=== PATIENT | female | born 1990 | race Caucasian/White ===

== ENCOUNTER 2024-05-02 12:57 | Emergency (ER) | payer OTHER ==
[~2024-05-02] VITALS: Ht 177.8 cm; Wt 101.0 kg
[2024-05-02] MEDS ORDERED: BUSP15TA47 PO (13:23)
[2024-05-02] MEDS ORDERED: CLON0.5T17 PO (13:23)
[2024-05-02] MEDS ORDERED: SERT-141 PO (13:23)
[2024-05-02 14:58] LABS: BASO # 0.1 10^3/uL (0.0-0.2); BASO % 0.8 % (0.0-1.0); EOS # 0.3 10^3/uL (0.0-0.5); EOS % 4.3 % (0.0-3.0); HEMATOCRIT 39.6 % (36.0-47.0); HEMOGLOBIN 13.4 g/dl (12.0-15.5); LYMPH % 28.6 % (24.0-44.0); MEAN CORPUSCULAR HEMOGLOBIN 29.3 pg (27.0-33.0); MEAN CORPUSCULAR HGB CONC 33.8 g/dl (32.0-36.5); MEAN CORPUSCULAR VOLUME 86.7 fl (80.0-96.0); MONO # 0.5 10^3/uL (0.0-0.8); MONO % 6.7 % (2.0-8.0); NEUTROPHILS # 4.2 10^3/uL (1.5-8.5); NEUTROPHILS % 59.3 % (36.0-66.0); PLATELET COUNT, AUTOMATED 229 10^3/uL (150-450); RED BLOOD COUNT 4.57 10^6/uL (4.00-5.40); WHITE BLOOD COUNT 7.1 10^3/uL (4.0-10.0)
[2024-05-02 15:25] LABS: BLOOD UREA NITROGEN 12 MG/DL (9-23); CALCIUM LEVEL 8.9 MG/DL (8.5-10.1); CARBON DIOXIDE LEVEL 23 MMOL/L (20-31); CHLORIDE LEVEL 110 MMOL/L (98-107); CK-MB VALUE MASS < 1.0 NG/ML (<3.6); CREATININE FOR GFR 0.69 MG/DL (0.55-1.30); GLOMERULAR FILTRATION RATE > 60.0 (>60); GLUCOSE, FASTING 88 MG/DL (60-100); SODIUM LEVEL 138 MMOL/L (136-145)
[2024-05-02 15:27] LABS: THYROID STIMULATING HORMONE 4.614 uIU/ML (0.55-4.78)
[2024-05-02 15:28] LABS: FREE T4 1.21 NG/DL (0.89-1.76)
[2024-05-02 15:30] LABS: CPK CREATINE PHOSPHOKINASE 50 U/L (34-145)
[2024-05-02 15:44] LABS: HCG, SERUM QUALITATIVE NEGATIVE (NEGATIVE)
[2024-05-02 17:22] VITALS: BP 113/56; TEMP 98.5; O2SAT 99
== END 2024-05-02 17:26 | disposition home or self-care (01) ==
LOC: M ED 12:57
DX: R00.2 Palpitations (principal); J45.909 Unspecified asthma, uncomplicated; E03.9 Hypothyroidism, unspecified; F41.9 Anxiety disorder, unspecified; F31.9 Bipolar disorder, unspecified; F32.A Depression, unspecified; F43.10 Post-traumatic stress disorder, unspecified; F12.10 Cannabis abuse, uncomplicated; Z88.8 Allergy status to other drugs, medicaments and biological substances; Z91.09 Other allergy status, other than to drugs and biological substances; Z79.899 Other long term (current) drug therapy

== ENCOUNTER 2025-05-07 14:25 | Emergency (ER) | payer OTHER, SELFPAY ==
[~2025-05-07] VITALS: Ht 177.8 cm; Wt 104.1 kg
[~2025-05-07 14:25] MED LIST: BUSP15TA47 PO; CLON0.5T17 PO; SERT-141 PO
[2025-05-07 14:29] VITALS: BP 131/80; TEMP 97.3; O2SAT 98
== END 2025-05-07 17:00 | disposition left against medical advice (07) ==
LOC: M ED 14:25
DX: Z53.21 Procedure and treatment not carried out due to patient leaving prior to being seen by health care provider (principal)

== ENCOUNTER 2025-05-08 00:52 | Emergency (ER) | payer SELFPAY ==
[~2025-05-08] VITALS: Ht 177.8 cm; Wt 104.1 kg
[2025-05-08 00:53] VITALS: BP 123/75; TEMP 97.8; O2SAT 97
[2025-05-08 02:27] LABS: BASO # 0.1 10^3/uL (0.0-0.2); BASO % 0.9 % (0.0-1.0); EOS # 0.4 10^3/uL (0.0-0.5); EOS % 5.1 % (0.0-3.0); LYMPH # 2.5 10^3/uL (1.5-5.0); LYMPH % 33.7 % (24.0-44.0); MONO # 0.6 10^3/uL (0.0-0.8); MONO % 8.3 % (2.0-8.0); NEUTROPHILS # 3.9 10^3/uL (1.5-8.5); NEUTROPHILS % 51.9 % (36.0-66.0); PLATELET COUNT, AUTOMATED 230 10^3/uL (150-450)
[2025-05-08 02:38] LABS: APPEARANCE, URINE CLOUDY (CLEAR); BACTERIA, URINE AUTO 1+ (NEGATIVE); BILIRUBIN, URINE AUTO NEGATIVE (NEGATIVE); BLOOD, URINE BLOOD NEGATIVE (NEGATIVE); GLUCOSE, URINE (UA) AUTO NEGATIVE (NEGATIVE); KETONE, URINE AUTO NEGATIVE (NEGATIVE); LEUKOCYTE ESTERASE, URINE AUTO 1+ (NEGATIVE); MUCUS, URINE LARGE (NEGATIVE); NITRITE, URINE AUTO NEGATIVE (NEGATIVE); PROTEIN, URINE AUTO 1+ mg/dL (NEGATIVE); RBC, URINE AUTO 2 /HPF (0-3); SPECIFIC GRAVITY URINE AUTO 1.031 (1.002-1.035); SQUAMOUS EPITHELIAL CELL UR AU 30 /HPF (0-6); UROBILINOGEN, URINE AUTO 4.0 mg/dL (0.0-2.0); WBC, URINE AUTO 8 /HPF (0-3)
[2025-05-08 02:54] LABS: ALT/SGPT 12 U/L (7.0-40); CALCIUM LEVEL 9.2 MG/DL (8.5-10.1); CARBON DIOXIDE LEVEL 25 MMOL/L (20-31); CHLORIDE LEVEL 107 MMOL/L (98-107); CREATININE FOR GFR 0.78 MG/DL (0.55-1.30); GLOMERULAR FILTRATION RATE > 90.0 (>60); POTASSIUM SERUM 3.7 MMOL/L (3.5-5.1); SODIUM LEVEL 141 MMOL/L (136-145)
[2025-05-08 03:46] LABS: HCG, SERUM QUALITATIVE NEGATIVE (NEGATIVE)
[2025-05-09 07:13] LABS: AST/SGOT 13 U/L (<34)
== END 2025-05-08 05:17 | disposition left against medical advice (07) ==
LOC: M ED 00:52
DX: Z53.21 Procedure and treatment not carried out due to patient leaving prior to being seen by health care provider (principal)